=== PATIENT | male | born 1990 | race Caucasian/White ===

== ENCOUNTER 2016-12-10 17:01 | Emergency (ER) | payer BC ==
--- NOTE | 2016-12-10 17:50 | EDM.PDOC ---
ED HPI GENERAL MEDICAL PROBLEM - General Chief Complaint: Upper Extremity Injury/Pain Stated Complaint: PT HURT LT INDEX FINGER Time Seen by Provider: 12/10/16 17:41 Source of Information: Reports: Patient History Limitations: Reports: No Limitations - History of Present Illness INITIAL COMMENTS - FREE TEXT/NARRATIVE: HISTORY AND PHYSICAL: []26-year-old male presenting with crushing injury to his left index finger History of Present Illness: []A heavy piece of metal came down onto his hand and he does remember what is to follow his hand hit and he has a laceration to the palmar surface of his index finger. He does not recall when his last tetanus injection was given. Review of Systems: As per history of present illness and below otherwise all systems reviewed and negative. Past medical history: As per history of present illness and as reviewed below otherwise noncontributory. Surgical history: As per history of present illness and as reviewed below otherwise noncontributory. Social history: No reported history of drug or alcohol abuse. Family history: As per history of present illness and as reviewed below otherwise noncontributory. Physical exam: Alert young man speaking in full sentences without any shortness of breath he does appear nontoxic HEENT: Atraumatic, normocehpalic, pupils reactive, negative for conjunctival pallor or scleral icterus, mucous membranes moist, throat clear, neck supple, nontender, trachea midline. Lungs: Clear to auscultation, breath sounds equal bilaterally, chest non tender. Heart: S1S2, regular, negative for clicks, rubs, or JVD. Abdomen: Soft, nondistended, nontender. Negative for masses or hepatossplenmegaly. Negative for costovertebral tenderness. Pelvis: Stable nontender. Genitourinary: Deferred. Rectal: Deferred Extremities: Atraumatic, negative for cords or calf pain. Neurovascular unremarkable. Neuro: Awake, alert, oriented. Cranial nerves II through XII unremarkable. Cerebellum unremarkable. Motor and sensory unremarkable throughout. Exam nonfocal. Diagnostics: [X-ray] Therapeutics: [] Impression: [Acute amended fracture of proximal phalanx second left finger] Laceration Plan: [] Discharge to home Keep splint on your finger Referral has been made to Dr. Sebastian for follow-up care Definitive disposition and diagnosis as appropriate pending reevaluation and review of above. Left 2-Index finger Pain Score (Numeric/FACES): 5 - Related Data Allergies Allergy/AdvReac Type Severity Reaction Status Date / Time No Known Allergies Allergy Verified 12/10/16 17:34 Home Meds: Home Meds Amoxicillin/Potassium Clav [Augmentin 875-125 Tablet] 1 each PO BID #14 tablet 12/10/16 [Rx] Past Medical History - Past Health History Medical/Surgical History: Denies Medical/Surgical History - Infectious Disease History Infectious Disease History: Reports: Chicken Pox Social & Family History - Family History Family Medical History: Noncontributory - Tobacco Use Smoking Status *Q: Current Every Day Smoker Years of Tobacco use: 4 Packs/Tins Daily: 1 - Caffeine Use Caffeine Use: Reports: Coffee, Soda - Recreational Drug Use Recreational Drug Use: No Review of Systems - Review of Systems Review Of Systems: ROS reveals no pertinent complaints other than HPI. ED EXAM, GENERAL - Physical Exam Exam: See Below (See dictation) ED TRAUMA EXTREMITY PROCEDURES - Laceration/Wound Repair Left Anterior Medial Finger Lac/Wound Length In cm: 1 Appearance: Muscle Distal NVT: Neuro & Vascular Intact, No Tendon Injury Anesthetic Type: Local Local Anesthetic Volume: 4cc Skin Prep: Saline, Sterile Drape Exploration/Debridement/Repair: Wound Explored Closed With: Sutures Suture Size: 4-0 # of Sutures: 2 Drain Placement: No Sterile Dressing Applied: Nurse Tetanus Status Addressed: Yes Complications: No Course - Vital Signs Last Recorded V/S: Last Vital Signs Temp 37.5 C 12/10/16 17:31 Pulse 90 12/10/16 17:31 Resp 18 12/10/16 17:31 BP 126/84 12/10/16 17:31 Pulse Ox 98 12/10/16 17:31 - Orders/Labs/Meds Orders: Active Orders 24 hr Category Date Time Status Splinting [RC] ASDIRECTED Care 12/10/16 18:50 Ordered Vaccines to be Administered [RC] PER UNIT ROUTINE Care 12/10/16 19:06 Ordered Fingers Second Digit Lt F1 [CR] Stat Exams 12/10/16 17:42 Taken Diphth,Pertuss(Acell),Tet Vac [Adacel] Med 12/10/16 19:06 Once 0.5 ml IM .ONCE ONE Medication Orders Diphtheria/Tetanus/Acell Pertussis (Adacel) 0.5 ml IM .ONCE ONE Stop: 12/10/16 19:07 Meds: Medications Generic Name Dose Route Start Last Admin Trade Name Freq PRN Reason Stop Dose Admin Diphtheria/Tetanus/Acell Pertussis 0.5 ml 12/10/16 19:06 Adacel IM 12/10/16 19:07 .ONCE ONE Discontinued Medications Generic Name Dose Route Start Last Admin Trade Name Freq PRN Reason Stop Dose Admin Bacitracin 1 dose 12/10/16 18:49 12/10/16 18:57 Bacitracin Oint 1 Gm TOP 12/10/16 18:50 1 dose ONETIME ONE Administration Lidocaine HCl 20 ml 12/10/16 18:49 12/10/16 18:57 Xylocaine 1% INJECT 12/10/16 18:50 20 ml ONETIME ONE Administration Departure - Departure Time of Disposition: 19:09 Disposition: Home, Self-Care 01 Condition: Good Clinical Impression: Fracture of proximal phalanx of finger Qualifiers: Encounter type: initial encounter Finger: index finger Fracture type: open Fracture alignment: nondisplaced Laterality: left Qualified Code(s): S62.641B - Nondisplaced fracture of proximal phalanx of left index finger, initial encounter for open fracture - Discharge Information Prescriptions: Amoxicillin/Potassium Clav [Augmentin 875-125 Tablet] 1 each PO BID #14 tablet Instructions: Cast or Splint Care, [id number], Crush Injury, Fingers or Toes , [id number] Referrals: PCP,None [Primary Care Provider] - Tere Sebastian MD [Physician] - Forms: ED Department Discharge Additional Instructions: The following information is given to patients seen in the emergency department who are being discharged to home. This information is to outline your options for follow-up care. We provide all patients seen in our emergency department with a follow-up referral. The need for follow-up, as well as the timing and circumstances, are variable depending upon the specifics of your emergency department visit. If you don't have a primary care physician on staff, we will provide you with a referral. We always advise you to contact your personal physician following an emergency department visit to inform them of the circumstance of the visit and for follow-up with them and/or the need for any referrals to a consulting specialist. The emergency department will also refer you to a specialist when appropriate. This referral assures that you have the opportunity for followup care with a specialist. All of these measure are taken in an effort to provide you with optimal care, which includes your followup. Under all circumstances we always encourage you to contact your private physician who remains a resource for coordinating your care. When calling for followup care, please make the office aware that this follow-up is from your recent emergency room visit. If for any reason you are refused follow-up, please contact the [facility] emergency department at and asked to speak to the emergency department charge nurse. Keep the splint on your finger to provide stabilization Antibiotic will be given to you Pain medication prescription has been written for you For all has been made to Dr. Roselyn Sebastian for follow-up care [facility] - [facility] Surgery Professional [address], [address] [place] [address] - My Orders Last 24 Hours: My Active Orders 12/10/16 17:42 Fingers Second Digit Lt F1 [CR] Stat 12/10/16 18:50 Splinting [RC] ASDIRECTED 12/10/16 19:06 Vaccines to be Administered [RC] PER UNIT ROUTINE Diphth,Pertuss(Acell),Tet Vac [Adacel] 0.5 ml IM .ONCE ONE - Assessment/Plan Last 24 Hours: My Active Orders 12/10/16 17:42 Fingers Second Digit Lt F1 [CR] Stat 12/10/16 18:50 Splinting [RC] ASDIRECTED 12/10/16 19:06 Vaccines to be Administered [RC] PER UNIT ROUTINE Diphth,Pertuss(Acell),Tet Vac [Adacel] 0.5 ml IM .ONCE ONE
[2016-12-10] MEDS ORDERED: Bacitracin Oint 1 GM U/D Packet TOP ONE (18:49)
[2016-12-10] MEDS ORDERED: Lidocaine 1% 20 ML MDV INJECT ONE (18:49)
[2016-12-10] MEDS ORDERED: Diphtheria,Pertussis(Acell),Tetanus Vaccine 0.5 ML Syringe IM ONE (19:06)
[2016-12-10 20:15] VITALS: BP 126/62
--- NOTE | 2016-12-13 11:54 | CR ---
EXAM DATE: 12/10/16 PATIENT'S AGE: 26 Patient: DIAN MASON Facility: [place], [place] Site . Site : 1990 Study: XRay Extremity Left FINGER [id number]/29/[id number] 6:07:19 PM Ordering Physician: Doctor Abarca Final Report: INDICATION: Crush injury. COMPARISON: None. FINDINGS/IMPRESSION: Left index finger, 3 views. Acute, nondisplaced, mildly comminuted fracture of the midshaft of the proximal phalanx of the left 2nd (index) finger. Overlying soft tissue swelling. No dislocation or other significant findings. Dictated by Michel Parks MD @ 12/10/2016 6:48:00 PM Dictated by: Michel Parks MD @ 12/10/2016 18:50:02 (Electronic Signature) Report Signed by Proxy. ALTON
== END 2016-12-10 19:25 | disposition home or self-care (01) ==
LOC: MW.ED 17:01
DX: S62.641B Nondisplaced fracture of proximal phalanx of left index finger, initial encounter for open fracture (principal); F17.210 Nicotine dependence, cigarettes, uncomplicated; Z23 Encounter for immunization; W19.XXXA Unspecified fall, initial encounter
CPT/HCPCS: 12001; 73140-26-F1; 73140-F1; 90471; 90715; 99282; 99283-25